=== PATIENT | female | born 2005 | race African-American/Black ===

== ENCOUNTER 2025-03-08 10:29 | Outpatient (AMB) | payer OTHER, SELFPAY ==
--- NOTE | 2025-03-08 10:32 | MHC.OFFVIS ---
Vital Signs 03/08/25 10:34 Height 5 ft 7 in Intake Visit Reasons: 4M MIGRAINE Allergies mirtazapine Allergy (Unknown, Verified 03/08/25 10:41) oral sores Medication List - Last Reconciled 03/08/25 by Sonja Tate CNP azelastine 1 spray intranasal BID zxlvlxcpyn-wchkfuvydqkvt-htwx 50-325-40 mg 1 tab PO Q6H PRN dapsone 5% topical dextroamphetamine-amphetamine 20 mg ER 1 cap PO QAM hydroxyzine HCl 50 - 100 mg PO BEDTIME PRN lamotrigine 300 mg PO BEDTIME spironolactone 100 mg PO DAILY HPI Comments Details: 19-year-old woman with mood disorder and ADHD treated by psychiatrist, migraine without aura, and basilar migraine (pain in the back of her head associated with blurred vision, forgetfulness, difficulty focusing, and difficulty speaking and difficulty walking). She was doing okay. Migraines were okay. She was getting about 1 migraine/month with photophobia, sonophobia, and nausea. Butalbital as needed helped. They seemed to be triggered by stress. Stress was better now that school was done for the semester. She was studying criminal justice and psychology at [employer]. Sleep was not so good recently. [facility] Medical History (Updated 03/08/25 @ 10:57 by Sonja Tate CNP) ADHD Eczema Lactose intolerance Basilar migraine Insomnia Depression with anxiety Migraine without aura Review of Systems Const Denies chills, Denies daytime sleepiness, Reports difficulty sleeping, Denies fatigue, Denies fever(s), Denies frequent falls, Reports headache(s), Denies increased appetite, Denies poor appetite, Denies snoring, Denies weakness, Denies weight gain and Denies weight loss Eyes Denies loss of vision ENT Denies vertigo, Denies dizziness and Reports headache(s) Card Denies chest pain at rest, Denies chest pain with activity, Denies leg edema and Denies palpitations Resp Denies snoring GI Denies constipation, Denies heartburn, Denies diarrhea and Denies nausea Denies urinary frequency, Denies urinary incontinence and Denies urinary urgency Musc Denies abnormal gait, Denies numbness and Denies tingling Skin/Breast Denies dry skin and Denies rash Neuro Denies abnormal gait, Denies vertigo, Denies dizziness, Denies frequent falls, Reports headache(s), Denies lack of coordination, Denies loss of vision, Denies memory loss, Denies numbness, Denies restless legs, Denies seizure-like activity, Denies tingling, Denies paresthesias, Denies tremor(s) and Denies weakness Psych Denies anxiety, Denies depression, Denies auditory hallucinations, Denies memory loss, Denies visual hallucinations and Denies suicidal ideation Endo Denies fatigue and Denies palpitations Physical Exam Const Other: General Appearance:? normal, in no acute distress. Skin:? no rashes, no significant birthmarks. Heart:? S1, S2 normal, no murmurs. Lungs:? clear anteriorly and posteriorly. Extremities:? no edema. Psych:? alert, oriented, cognitive function intact, cooperative with exam. Neuro Other: Mental Status:?Normal attention, orientation, memory and affect.? Cranial Nerves:?Pupils are equal, round and reactive to light. External occular muscles are intact. Visual elliott are full. Face is symmetrical. Facial sensations are normal. Tongue is midline. Palate elevates symmetrically. Shoulder shrugging is normal. Hearing to bedside conversation is normal. Motor Examination:?Normal muscle tone, bulk and strength,?Deep tendon reflexes are 2+,?Plantars are flexor.? Sensory Exam:?....? Coordination:?No ataxia,?no titubation.? Gait Exam: Within normal limits. Cerebellar Signs:?Wirsvz-dp-tnjk and bgdf-yy-rtoe is normal.? Extrapyramidal System:?No tremor, rigidity with normal facial expressions.? Pronator Drift:?Not present.? Involuntary Movements:?No tremors seen.? Speech:?Normal.? Assessment & Plan Assessment & Plan (1) Migraine without aura: Code(s): G43.009 - Migraine without aura, not intractable, without status migrainosus Category: Medical Qualifiers: Status migrainosus presence: without status migrainosus Intractability: not intractable Qualified Code(s): G43.009 - Migraine without aura, not intractable, without status migrainosus Plan: Continue wmhyejumqu-QMEU-yioladoa 50-325-40mg as needed. Declining as needed medication for nausea at this time. (2) Basilar migraine: Code(s): G43.109 - Migraine with aura, not intractable, without status migrainosus Category: Medical Plan: . Plan Meds tried: Sumatriptan, rizatriptan, butalbital, naproxen Medications: New ezimlazsoj-wysrummwdsngx-trxt 50-325-40 mg 1 tab PO Q8H PRN 12 tabs 0RF migraine 30 days Discontinued zhparpabcw-pgpxpxtkvrkfq-kcpr 50-325-40 mg Discontinued Reason: Order 1 tab PO Q6H PRN Coding Level of Care Code Est Pt Level 3 (39743) Diagnoses Migraine without aura and without status migrainosus, not intractable G43.009 Status migrainosus presence: without status migrainosus Intractability: not intractable Basilar migraine G43.109
--- OUTSIDE RECORDS SUMMARY | 2025-03-08 11:10 | XMS_ITS | Clinical Summary ---
Author Organization [facility] Address [address] [place] [address] Care Team Providers Care Pull Tab Dealer Name Role Phone Jose Pérez [facility] Unavailable Pcp, No Primary Care Provider Unavailabl e Allergies No known active allergies Medications * This document contains information received from the source organization and may not represent a complete record from that organization. escitalopram (LEXAPRO) 10 MG tabletIndicatio ns:Major Depressive Disorder Take 1 tablet (10 mg total) by mouth nightly. 30 tablet 06/13/2019 Active melatonin 3 MG Tab tabletIndicatio ns:Insomnia Take 2 tablets (6 mg total) by mouth nightly as needed (insomnia). 60 tablet 06/13/2019 Active Active Problems Problem Noted Date Diagnosed Date Major depressive disorder 06/08/2019 Resolved Problems Problem Noted Date Diagnosed Date Resolved Date Suicidal ideations 06/08/2019 9 Suicidal thoughts 06/08/2019 06/13/2019 Social History Tobacco Use Types Packs/Day Years Used Date Smoking Tobacco: Never Smokeless Tobacco: Never Alcohol Use Standard Drinks/Week Comments Never 0 (1 standard drink = 0.6 oz pur e alcohol) AUDIT-C Answer Date Recorded Frequency of Alcohol Consumption Never 06/08/2019 Average Number of Drinks Not on file 019 Frequency of Binge Drinking Not on file 05/30 Comments Unknown Sex and Gender Information Value Date Recorded Sex Assigned at Not on file Legal Sex Female 12:20 PM EDT Gender Identity Not on file Sexual Orientation Not on file Last Filed Vital Signs Vital Sign Reading Time Taken Comments Blood Pressure 107/54 06/14/2019 8:00 AM EDT Pulse 105 06/14/2019 8:00 AM EDT Temperature 36.5 C (97.7 F) 06/14/2019 8:00 AM EDT Respiratory Rate 17 06/14/2019 8:00 AM EDT Oxygen Saturation - - Inhaled Oxygen Concentration - - Weight 64.4 kg (142 lb) 06/14/2019 8:00 AM EDT Height 175.3 cm (5' 9 ) 06/08/2019 7:00 PM EDT Body Mass Index 20.97 06/08/2019 7:00 PM EDT Plan of Treatment Health Maintenance Due Date Last Done Comments Hepatitis C Virus Screening 2003 HIV Screening 2016 HPV Vaccines (1 - 3-dose series) 2018 DTaP/Tdap/Td Vaccines (1 - Tdap) 2022 Hepatitis B Vaccines (1 of 3 - 19+ 3-dose series) 2022 COVID-19 Vaccine ( - 2023-2 5 season) 2024 Pap Smear (Ages 21-65) 2024 Influenza Vaccine 03/30/2025 Pneumococcal Vaccine: Pediat pollo (0-5 Years) and At-Risk Patients (6 to 49 Years) Aged Out No longer eligible b ased on patient's age to complete this topic Insurance [facility] Advance Directives * Full Code (Latest Code Status on File) Date Activated Date Inactivated Comments 06/08/2019 7:19 PM Care Teams Pull Tab Dealer Relationship Specialty Start Date End Date Pcp, No PCP - General General Medicine 06/07/19 Jose Pérez RPH [address] [place] [address], [place] [id number] Pharmacist 06/09/19
--- OUTSIDE RECORDS SUMMARY | 2025-03-08 11:10 | XMS_ITS | Clinical Summary ---
Author Organization [address] Address [address] [place] [phone] Phone Care Team Providers Care Litigation Docket Manager Name Role Phone Kaz Hernandez MD Primary Care Provider [phone] Allergies Active Allergy Reactions Criticality Noted Date Comments Mirtazapine Swelling 01/28/2023 Lips and mouth swelling, sores in mouth Other 04/24/2011 Seasonal Allergies Medications azelastine (OPTIVAR) 0.05 % ophthalmic solution Place 1 Drop into both eyes 2 times daily. 3 Active dapsone (ACZONE) 5 % topical gel PLEASE SEE ATTACHED FOR DETAILED DIRECTIONS 4 Active hydrocortisone (WESTCORT) 0.2 % cream Apply BID to affected areas 2 Active hydrOXYzine pamoate (VISTARIL) 25 mg capsule TK 1 C PO HS 0 Active lamoTRIgine (LaMICtal) 200 mg tablet Take 200 mg by mouth daily. 1 Active tretinoin (RETIN-A) 0.05 % cream Apply 1 Squirt topically daily as needed. 2 Active amphetamine-dex troamphetamine XR (ADDERALL XR) 20 mg 24 hr capsule Take 1 capsule (20 mg total) by mouth 1 (one) time each day in the morning. 4 Active spironolactone (ALDACTONE) 100 mg tablet PLEASE SEE ATTACHED FOR DETAILED DIRECTIONS 5 Active Active Problems Problem Noted Date Diagnosed Date Mood disorder (CMS/HCC V24) 02/12/2022 Lactose intolerance 06/30/2018 Contact dermatitis and eczema 10/10/2008 Allergic rhinitis 11/30/2006 Encounters Date Type Department Care Team Description 12/28/2024 10:30 AM EDT Office Visit [facility] [address] [place] [id number] Myrtle Agudelo PA Encntr for aqueduct and reservoir keeper exam (general) (routine) w/o abn findings (Primary Dx); Cervical cancer screening; Encounter for breast cancer screening using non-mammogram modality from Last 3 Months Immunizations Name Administration Dates Next Due DTaP (Infanrix) 6wks to less than 7yo ,01/25/2004,2003,09/11 DTaP / Hib 10/14/2004 JTqG-JVO-CRY (Pentacel) 2mo to less than 5yo 01/25/2004,2003,2003 H1N1 Inj Preservative Free 09/02/2009,07/30/2009 HPV 9-valent (Gardisil) 9yo to less than 46yo 11/27/2016,05/29/2016 Hepatitis B (Murwnbu-O-Eunru , Recombivax HB-Adult) 19yo and older 11/19/2023,07/15/2023,04/12/2023 Hepatitis B Pediatric (Enger ix B; Recombivax HB) to less than 20 yo 05/01/2004,2003,2003 IPV Inactivated polio (Ipol) 6wks and older 03/30/2008,05/01/2004,2003,09/11 Influenza Quadravalent, MDCK , 0.5ml, preservative free (Flucelvax) 6mo and older 08/04/2022 Influenza trivalent, 0.5mL, preservative free (Fluarix; FluLaval; Fluzone) ages 6mo and older (Afluria) 3 years and older 06/17/2021,06/14/2020,06/15/2019,06/09,06/03/2017 Influenza trivalent, MDCK, 0 .5mL, preservative free (Flucelvax) 6mo and older 08/02/2024 Influenza trivalent, with pr eservative (Fluzone; Afluria) 6mo and older 05/29/2016,05/28/2011,07/30/2009,05/23 Influenza, live, intranasal, trivalent (FluMist) 2yo to less than 50yo 05/23/2015,05/11/2014,05/09/2013,05/05 MMR, measles mumps and rubel la Live (Priorix; M-M-R II) 12mo and older 03/30/2008,10/14/2004 Meningococcal MCV4P 06/14/2020,05/23/2015 Pneumococcal Conjugate Vacci ne, 7 Valent 10/14/2004,07/22/2004,2003,09/11 Tdap Tetanus diptheria acell ular pertussis (Boostrix; Adacel) 7yo and older 05/23/2015 Varicella live (Varivax) 12m o and older 03/30/2008,07/22/2004 Surgical History Surgery Date Site/Laterality Comments OTHER SURGICAL HISTORY PROCEDURE: DENIES PREVIOUS SURGERY Medical History Medical History Date Comments Depression DX:Depression Mood disorder (CMS/HCC V24) DX:M ood disorder ([facility] Family History Medical History Relation Name Comments Diabetes Aunt MATERNAL No Known Problems Brother Other cancer Maternal Grandfather Other: HEART Mother No Known Problems Sister 1 No Known Problems Sister 2 No Known Problems Sister 3 No Known Problems Sister 4 Diabetes Uncle 1 MATERNAL Other: HEART Uncle 2 MATERNAL Other cancer Uncle 3 MATERNAL Relation Name Status Comments Aunt Brother Alive Maternal Grandfather Maternal Grandmother Mother Alive Sister 1 Alive Sister 2 Alive Sister 3 Alive Sister 4 Alive Uncle 1 Uncle 2 Uncle 3 Social History Tobacco Use Types Packs/Day Years Used Date Smoking Tobacco: Never Smokeless Tobacco: Never Tobacco Cessation:Counseling Given: Not Answered Alcohol Use Standard Drinks/Week Comments Yes 0 (1 standard drink = 0.6 oz pur e alcohol) socially Comments No Sex and Gender Information Value Date Recorded Sex Assigned at Not on file Legal Sex Female 12:39 AM EST Gender Identity Not on file Sexual Orientation Not on file Obstetrics History Para Term AB IAB SAB Ectopic Multiple Livin g Live Births 0 0 0 0 0 0 0 0 0 0 0 Last Filed Vital Signs Vital Sign Reading Time Taken Comments Blood Pressure 128/74 12/28/2024 10:21 AM EDT Pulse 87 12/28/2024 10:21 AM EDT Temperature - - Respiratory Rate 18 12/28/2024 10:21 AM EDT Oxygen Saturation - - Inhaled Oxygen Concentration - - Weight 66.2 kg (146 lb) 12/28/2024 10:21 AM EDT Height 170.2 cm (5' 7 ) 12/28/2024 10:21 AM EDT Body Mass Index 22.87 12/28/2024 10:21 AM EDT Plan of Treatment Upcoming Encounters Date Type Department Care Team (Late st Contact Info) Description 08/08/2025 11:30 AM EST Office Visit Internal Medicine - [facility] [address] [place] [phone] Kaz Hernandez MD [address] [place] [address] Health Maintenance Due Date Last Done Comments Meningococcal B Vaccine (1 of 2 - Standard) 2019 Gonorrhea/Chlamydia Screening 11/18/2024 11/19/2023 Influenza Vaccine (#1) 2025 , 08/08/2023, 08/04/2022, Additional history exists DTaP,Tdap,and Td Vaccines (7 - Td or Tdap) 05/23/2025 05/23/2015, 03/30/2008, 10/14/2004, Additional history exists Depression Screening 08/02/2025 08/02/2024 Social Influencers of Health Screening 08/02/2025 08/02/2024 Annual Well Child Visit (3-21 years old) 12/28/2025 12/28/2024, 08/02/2024, 04/12/2023, Additional history exists Cholesterol Screening (Lipid Panel) 07/31/2027 07/31/2022 Cervical Cancer Screening: Pap Smear 12/29/2027 12/28/2024 HIB Vaccines Completed 10/14/2004, 12/29, 01/25/2004, Additional history exists Pneumococcal Vaccine: Pediatrics (0 to 5 Years) and At-Risk Patients (6 to 49 Years) Completed 10/14/2004, 07/22/2004, 2003, Additional history exists IPV Vaccines Completed 03/30/2008, 09/2003, 01/25/2004, Additional history exists MMR Vaccines Completed 03/30/2008, 10/14/2004 Varicella Vaccines Completed 03/30/2008, 07/22/2004 HPV Vaccines Completed 11/27/2016, 05/29/2016 Meningococcal ACWY Vaccine Completed 06/14/2020, HIV Screening Completed 11/19/2023 Hepatitis B Vaccines Completed 11/19/2023, 07/15/2023, 04/12/2023, Additional history exists Hepatitis C Screening Completed 11/19/2023 COVID-19 Vaccine Completed 08/02/2024, 10/2021, 08/25/2021, Additional history exists Hepatitis A Vaccines Aged Out No long er eligible based on patient's age to complete this topic RSV Immunization Patients Under 20 months Aged Out No longer eligible based on patient's age to complete this topic Procedures Procedure Name Priority Date/Time Associated Diagnosis Comments PAP SMEAR Routine 12/28/2024 2:55 PM EDT Cervical cancer screening HEPATITIS C SCREENING Routine 11/19/2023 HIV SCREENING Routine 11/19/2023 GONORRHEA/CHLAMYDIA SCRREENING Routine 11/19/2023 LIPID PANEL Routine 07/31/2022 from Last 3 Months or Most Recently Relevant to Health Maintenance Results * Pap smear (12/28/2024 2:55 PM EDT) Interpretation Negative for intraepithelial lesion or malignancy 01/01/2025 11:12 AM EDT [facility] General Categorization Negative 01/01/2025 11:12 AM EDT [facility] Other Findings Shift in jody suggestive of bacterial vaginosis 01/01/2025 11:12 AM [facility] Specimen Adequacy Satisfactory for evaluation, endocervical/whitehead sformation zone component present 01/01/2025 11:12 AM [facility] Pap Methodology Liquid Based Pap Test 01/01/2025 11:12 AM [facility] Disclaimer The Pap test is a screening test which carries an inherent false negative rate. These test results should be correlated with the patient's clinical findings and history. This Pap test was processed using an automated screening system. Technical cytopathology services provided by [facility], at [address] [place] [id number] (CLIA # [id number]/Jon Markham MD, Procurement Specialist.) 01/01/2025 11:12 AM [facility] Console Pap Interpretation Reported 01/01/2025 11:12 AM [facility] Brushing/Spatula Cervix uteri structure / Unknown 12/28/2024 2:55 PM EDT 12/28/2024 2:55 PM EDT Myrtle JACINTO LAB CYTOLOGY ORDERABLES Carri l Result [facility] [address] [place] [address], * HIV Screening (11/19/2023) HIV Screening Abstracted us Historical Provider HEALTH MAINTENANCE Final Result * Hepatitis C Screening (11/19/2023) Hepatitis C Screening Abstracted us Historical Provider HEALTH MAINTENANCE Final Result * Gonorrhea/Chlamydia Screening (11/19/2023) Gonorrhea/Chla mydia Screening Abstracted Historical Provider HEALTH MAINTENANCE Final Result * Lipid panel (07/31/2022) LDL/HDL Ratio 2 0 - 4 Triglycerides 44 0 - 150 mg/dL Cholesterol 165 0 - 200 mg/dL HDL 77 >=40 mg/dL LDL Cholesterol 80 0 - 100 mg/dL Blood Venous blood specimen / Unknown us Historical Provider LAB BLOOD ORDERABLES Carri l Result from Last 3 Months or Most Recently Relevant to Health Maintenance Insurance [facility] Care Teams Litigation Docket Manager Relationship Specialty Start Date End Date Kaz Hernandez [facility] [place] [address] PCP - General Internal Medicine 11/25/21
== END 2025-03-08 10:53 | disposition home or self-care (01) ==
LOC: HO.HSM 10:30
PROVIDERS: PCP Internal Medicine; Referring Provider Internal Medicine; Visit Provider Registered Nurse
DX: G43.009 Migraine without aura, not intractable, without status migrainosus (principal); G43.109 Migraine with aura, not intractable, without status migrainosus
CPT/HCPCS: 99213